=== PATIENT | male | born 1930 | race Caucasian/White ===

== ENCOUNTER → 2017-08-20 | Day surgery (SDC) | payer MEDICARE ==
[~2017-08-20] VITALS: Ht 177.8 cm; Wt 72.0 kg
[~2017-08-20] MED LIST: ARTIFICIAL TEARS OPTH OINT 3.5 APPLIC/3.5 GM TUBO ONE; CIPR250T2 PO; DEXAMETHASONE SOD PHOS 4 MG/ML VIAL IV ONE; FINA5TAB2; GLYCOPYRROLATE 1 MG/5 ML SYRINGE IV PUSH ONE; GLYCOPYRROLATE 1 MG/5 ML VIAL IV PUSH ONE; LABETALOL HCL 100 MG/20 ML VIAL IV ONE; LACTATED RINGER'S 1000 ML INJ 1,000 ML ONE; LEVA250T14 PO; LIDOCAINE 1%/EPINEPHrine 1:100,000 SOLN 50 ML VIAL ONE; METR-1 PO; MULTTAB67 PO; NEOSTIGMINE 5 MG/5 ML SYRINGE IV PUSH ONE; NITR100C4 PO; OMEP20TA93 PO; ONDANSETRON HCL 4 MG/2 ML VIAL IV PUSH ONE; OXYC1TAB63 PO; PROPOFOL 200 MG/20 ML AMP IV ONE; ROCURONIUM INJ 50 MG/5 ML SYRINGE IV PUSH ONE; SIMV10TA PO; SUCR1TAB PO; TERA1CAP3 PO; URSO300C2 PO; VITA1000 PO; ceFAZolin 2 GM PREMIX 50 ML IV SCH; ePHEDrine/NS 25 MG/5 ML SYRINGE IV ONE
[2017-08-20 09:30] VITALS: PULSE 67
--- NOTE | 2017-08-20 09:38 | PD.OP ---
Operative Report Basal cell carcinoma Tip of nose Postoperative Diagnosis: Basal cell carcinoma Tip of nose Procedure: Excision Basal cell carcinoma 2 cm diameter, Frozen section and full thickness skin graft from Left side neck Anesthesia: General Surgeon: Atilio Shah Mental Tester(s): RN Resident Surgeon: none Operation and Findings: Patient was given general anesthesia in supine position, prep and drape was done Time out was completed Tip of nose area markings was done - taking 5 to6 mm margin on all sides, final defect 2 cm in diameter Local anesthetic was infiltrated Specimen was excised down to the cartilage from periphery and taking a small portion of the cartilage in the area immediately below the center of the tumor. Suture marked superior, sent for frozen section. Hemostasis was completed Oversized graft harvested full thickness from left side neck close to the hairline to get thicker skin. Graft was defatted and applied to the nose defect stating in the center - the lateral aspects were de-epithelized and turned in for additional thickness in desired areas. Sutures 4/0 Chromic. Also, 3/0 Vicryl through bolster sutures using Xeroform and eyepad dressing. Excess graft was kept on saline moist gauze. Donor site was closed with 3/0 Vicryl. Steristrip applied. Frozen section reported was BCC with clear margins Patient remained stable, no complications, blood loss less than 5 cc. Atilio Shah MD Aug 20, 2017 09:38
[2017-08-20 10:30] VITALS: TEMP 97.7
[2017-08-20 11:43] VITALS: BP 120/70; PULSE 58; RESP 16; O2SAT 95
== END | disposition home or self-care (01) ==
LOC: PHSDC 06:29
PROVIDERS: ATTEND Plastic Surgery
DX: C44.311 Basal cell carcinoma of skin of nose (principal)
CPT/HCPCS: 00300; 11642; 15260; 88305; 88331; J0690; J1100; J2405; J2710; J3010; J7120

== ENCOUNTER 2018-02-27 13:32 | Inpatient (IN) ==
[2018-02-27] MEDS ORDERED: Morphine Sulfate 15 MG SR Tablet PO ONE (14:00)
--- NOTE | 2018-02-27 14:28 | XR ---
EXAM DATE: 02/27/2018 2:22 PM EDT AGE/SEX: 87 years / Male INDICATIONS: Chest discomfort. CLINICAL DATA: This is the patient's initial encounter. Patient reports that signs and symptoms have been present for 1 day and indicates a pain score of 0/10. MEDICAL/SURGICAL HISTORY: None. None. COMPARISON: No prior exams available for comparison. FINDINGS: The cardiac silhouette is borderline. There is mild bibasilar parenchymal opacity. Mediastinal contou rs and pulmonary vascularity are grossly satisfactory. CONCLUSION: Mild bibasilar parenchymal opacities. Electronically signed by: Yuval Haider MD 02/27/2018 2:26 PM EDT
--- NOTE | 2018-02-27 14:49 | ED ---
HPI General Chief complaint: Medical Clearance Stated complaint: Dr jermaine/ Medical Complaint Time Seen by Provider: 02/27/18 14:00 Source: family and old records reviewed Mode of arrival: ambulatory Limitations: no limitations History of Present Illness HPI narrative: 87-year-old male arrives from the cardiology office. The patient has a heart rate in the 30s with a third-degree block. Patient has no symptoms. The EKG was observed to be abnormal based on a routine primary care appointment yesterday. Glazing Department Supervisor, Dr Decker, intends to place a pacing device tomorrow morning. Patient has a history of functional decline over the last 6 months or so he requires assistance with food/eating, bathing and dressing. No reported loss of consciousness, dyspnea, chest pain, diaphoresis or vomiting. History is provided by medical records and by the son Onset (ago): day(s) Location: chest Radiation: non-radiation Severity: moderate Related Data Allergies Allergy/AdvReac Type Severity Reaction Status Date / Time Sulfa (Sulfonamide Allergy Severe SWELLING Verified 02/27/18 14:24 Antibiotics) Review of Systems ROS Unobtainable ROS Unobtainable: unobtainable due to mental condition and unobtainable due to mental status PMFSH Medical History Medical History Bladder cancer (Acute) Chronic back pain (Acute) FH: cholecystectomy (Acute) History of chemotherapy (Acute) Surgical History Surgical History History of back surgery (Acute) Social History Social History Substance History: No History of Abuse Second Hand Smoke Exposure: No Smoking Status: Never smoker How Often Do You Have a Drink Containing Alcohol: Never Recent Travel in [place] within the Last 8 Weeks: No Recent Out of Country Travel within the Last 8 Weeks: No Exam Narrative Exam Narrative: GENERAL: 87-year-old male elderly, somewhat frail, does not answer questions directly, history provided by 7 SKIN: Focused skin assessment warm/dry. HEAD: Atraumatic. Normocephalic. EYES: Pupils equal and round. No scleral icterus. No injection or drainage. ENT: No nasal bleeding or discharge. Mucous membranes pink and moist. NECK: Trachea midline. No JVD. CARDIOVASCULAR: Heart rate is in the 30s. It is regular. RESPIRATORY: No accessory muscle use. Clear to auscultation. Breath sounds equal bilaterally. GASTROINTESTINAL: Abdomen soft, non-tender, nondistended. Hepatic and splenic margins not palpable. MUSCULOSKELETAL: No obvious deformities. No clubbing. No cyanosis. No edema. NEUROLOGICAL: The patient can stand with assistance. There is no focal deficit. Patient is awake and alert however does not converse with examiner. PSYCHIATRIC: Reasonably cooperative. Appropriate attire. Course Reevaluation(s) Reevaluation #1: Case discussed with Dr. Decker of cardiology. Pacer pads were placed on the patient and the monitor is at the bedside Time: 14:36 Initial Documented Vital Signs Temperature 97.8 F 02/27/18 13:40 Pulse Rate 35 L 02/27/18 13:40 Respiratory Rate 16 02/27/18 13:40 Blood Pressure 156/59 H 02/27/18 13:40 Pulse Oximetry 100 02/27/18 13:40 Last Documented Vital Signs Temperature 97.8 F 02/27/18 13:40 Pulse Rate 32 L 02/27/18 14:00 Respiratory Rate 18 02/27/18 14:00 Blood Pressure 164/74 H 02/27/18 14:00 Pulse Oximetry 98 02/27/18 14:00 Medical Decision Making MDM Narrative Medical decision making narrative: Patient will be admitted to the stepdown unit with the pacer pads connected at bedside. Case discussed with Dr. Muro. Discussed with Dr. Decker. Echocardiogram added on per Dr. Decker's recommendation. Patient remained asymptomatic and with normal BP throughout his ED stay. Medical Screen Exam Complete: Yes Emergency Medical Condition: Yes Lab Data Lab results reviewed: Yes I reviewed the patient's lab results. Result diagrams: 02/27/18 14:16 02/27/18 14:16 Lab Results 02/27/18 02/27/18 02/27/18 Range/Units 14:16 14:16 14:16 WBC 5.8 (4.0-11.0) th/mm3 RBC 4.53 (4.50-5.90) mil/mm3 Hgb 13.4 (13.0-17.0) gm/dL Hct 41.8 (39.0-51.0) % MCV 92.2 (80.0-100.0) fL MCH 29.4 (27.0-34.0) pg MCHC 31.9 L (32.0-36.0) % RDW 17.1 (11.6-17.2) % Plt Count 209 (150-450) th/mm3 MPV 9.6 (7.0-11.0) fL Neut % (Auto) 60.4 (16.0-70.0) % Lymph % (Auto) 26.3 (9.0-44.0) % Dare % (Auto) 8.8 H (0.0-8.0) % Eos % (Auto) 3.5 (0.0-4.0) % Baso % (Auto) 1.0 (0.0-2.0) % Neut # (Auto) 3.5 (1.8-7.7) th/mm3 Lymph # (Auto) 1.5 (1.0-4.8) th/mm3 Dare # (Auto) 0.5 (0.0-0.9) th/mm3 Eos # (Auto) 0.2 (0.0-0.4) th/mm3 Baso # (Auto) 0.1 (0.0-0.2) th/mm3 WBC Differential . Differential Comment Auto diff final PT 10.7 (9.8-11.6) sec INR 1.1 Ratio APTT 26.1 (24.3-30.1) sec Sodium 146 H (136-145) meq/L Potassium 3.9 (3.5-5.1) meq/L Chloride 111 H (98-107) meq/L Carbon Dioxide 29.5 (21.0-32.0) meq/L Anion Gap 6 (5-15) meq/L BUN 29 H (7-18) mg/dL Creatinine 1.18 (0.60-1.30) mg/dL Estimated GFR 58 L (>89) mL/min Random Glucose 79 (74-106) mg/dL Calcium 8.2 L (8.5-10.1) mg/dL Imaging Data Radiologist's impression: Chest X-Ray 02/27/18 14:00 CONCLUSION: Mild bibasilar parenchymal opacities. ECG Data EKG Prior to Arrival: Yes Attestation: I personally reviewed and interpreted this ECG as follows: Interpretation: EKG shows bradycardia at a rate of 30-40 but appears to be a complete heart block nonspecific ST changes multiple leads Discharge Plan Discharge Disposition Patient Disposition: 30 Still Patient Physicians Team ED Provider: George Garnica Primary Care Provider: Vic Resendiz Attending Provider: Rayo Muro Discharge Interventions Interventions: Vital Signs Last Done: 02/27/18 13:40 Status ED Status: Admitted Patient
[2018-02-27 15:13] LABS: Baso # (Auto) 0.1 th/mm3 (0.0-0.2); Eos # (Auto) 0.2 th/mm3 (0.0-0.4); Eos % (Auto) 3.5 % (0.0-4.0); Hematocrit 41.8 % (39.0-51.0); Hemoglobin 13.4 gm/dL (13.0-17.0); Lymph # (Auto) 1.5 th/mm3 (1.0-4.8); Lymph % (Auto) 26.3 % (9.0-44.0); Mean Corpuscular HGB Conc 31.9 % (32.0-36.0); Mean Corpuscular Hemoglobin 29.4 pg (27.0-34.0); Mean Corpuscular Volume 92.2 fL (80.0-100.0); Mean Platelet Volume 9.6 fL (7.0-11.0); Mono # (Auto) 0.5 th/mm3 (0.0-0.9); Mono % (Auto) 8.8 % (0.0-8.0); Neut # (Auto) 3.5 th/mm3 (1.8-7.7); Neut % (Auto) 60.4 % (16.0-70.0); Platelet Count 209 th/mm3 (150-450); Red Blood Count 4.53 mil/mm3 (4.50-5.90); Red Cell Distribution Width 17.1 % (11.6-17.2); White Blood Count 5.8 th/mm3 (4.0-11.0)
[2018-02-27 15:40] LABS: Activated Partial Thrombo Time 26.1 sec (24.3-30.1); INR 1.1 Ratio; Prothrombin Time 10.7 sec (9.8-11.6)
[2018-02-27 15:46] LABS: Calcium 8.2 mg/dL (8.5-10.1); Carbon Dioxide 29.5 meq/L (21.0-32.0); Potassium 3.9 meq/L (3.5-5.1)
[2018-02-27] MEDS ORDERED: Acetaminophen 325 MG Tablet PO PRN (16:14)
--- NOTE | 2018-02-27 16:37 | P.HPIM ---
History of Present Illness Primary Care Physician: Vic Resendiz MD Chief Complaint: complete heart block History of Present Illness: Patient is a pleasant 87-year-old male with dementia sent to [place] for complete heart block. Patient was seeing his primary care physician today, Dr. Vic Resendiz. Routine office EKG noted complete heart block. Patient was then sent by Dr. Resendiz to his professor of physics Dr. Decker. EKG at Dr. Decker's office did confirm complete heart block. Case was discussed between Dr. Decker and Mr. Simental's son. Dr. Decker did explain that hospice care would be appropriate, but Son apparently requested permanent pacemaker placement. Patient is interviewed and examined in his ER room alone. Son is not present. Patient is unable to give any meaningful history. Patient will be admitted to [facility] for permanent pacemaker. PMH: Bladder cancer, cervical spondylosis, chronic constipation, diverticulosis , duodenal ulcer, dysphasia, GERD, hemorrhoids, hyperlipidemia, hypertonic bladder, Lumbar stenosis PSH: Cholecystectomy, colonoscopy, cystoscopy, EGD, ERCP, TURP FHX: Non-contributory SHX: lives with family, no tobacco, no alcohol, no illicit drugs. All: Sulfa - Diagnosis (1) Heart block AV complete Inpatient Certification: I certify that the inpatient services were ordered in accordance with Medicare regulations governing the order. This includes certification that hospital inpatient services are reasonable and necessary and in the case of services not specified as inpatient-only under 42 CFR 419.22(n), that they are appropriately provided as inpatient services in accordance to with the 2-midnight benchmark under 43 CFR 412.3(e) Estimated Total Length of Stay (Days): 3 Plans for Post Hospital Care: Not yet determined Review of Systems All other systems reviewed negative except as stated in HPI PMFSH - History History Provided By: Patient, Family Member - Medical History Medical History: Medical History (Last Reviewed 02/28/18 @ 08:43 by Jerry Segura) Bladder cancer Chronic back pain FH: cholecystectomy History of chemotherapy - Surgical History Surgical History: Surgical History (Last Reviewed 02/28/18 @ 08:43 by Jerry Segura) History of back surgery - Tobacco History Second Hand Smoke Exposure: No Tobacco Use In Past 30 Days: No Smoking Status: Never smoker - Alcohol History How Often Do You Have a Drink Containing Alcohol: Never - Substance Use History Substance History: No History of Abuse - Travel History Recent Travel in the [place] Within the Last 8 Weeks: No Recent Travel Out of the Country Within the Last 8 Weeks: No - Immunization History Tetanus Immunization: Unsure Hx Influenza Vaccine This Season: Yes Medications and Allergies Active Medications: Active Medications Acetaminophen (Tylenol) 650 mg PO Q4H PRN PRN Reason: Temp > 100.4 Al Hydroxide/Mg Hydroxide (Milk Of Magnraffy Liq) 30 ml PO Q12H PRN PRN Reason: Mild Constipation Ondansetron HCl (Zofran Inj) 4 mg IV.PUSH Q6H PRN PRN Reason: NAUSEA OR VOMITING Senna/Docusate Sodium (Nicolasa-Colace) 1 tab PO BID MARLENI Sodium Chloride (Ns Flush) 2 ml IV.FLUSH UNSCH PRN PRN Reason: FLUSH AFTER USING IV ACCESS Allergies Allergy/AdvReac Type Severity Reaction Status Date / Time Sulfa (Sulfonamide Allergy Severe SWELLING Verified 02/27/18 14:24 Antibiotics) Home Medications Medication Instructions Recorded Confirmed Type No Known Home Medications 02/27/18 02/27/18 History Exam Vital signs: Vital Signs 02/27/18 13:40 02/27/18 14:00 Temperature 97.8 F Pulse Rate 35 L 32 L Respiratory Rate 16 18 Blood Pressure 156/59 H 164/74 H Pulse Oximetry 100 98 Narrative: GENERAL: This is a well-nourished, well-developed patient, in no apparent distress. CARDIOVASCULAR: Regular rate and rhythm without murmurs, gallops, or rubs. RESPIRATORY: Clear to auscultation. Breath sounds equal bilaterally. No wheezes , rales, or rhonchi. GASTROINTESTINAL: Abdomen soft, non-tender, nondistended. Normal active bowel sounds MUSCULOSKELETAL: Extremities without clubbing, cyanosis, or edema. NEURO: Patient is able to speak only a few words. Patient follows simple commands. Results - Labs CBC & Chem 7: 02/27/18 14:16 02/27/18 14:16 - Imaging Impressions Chest X-Ray 02/27/18 14:00 CONCLUSION: Mild bibasilar parenchymal opacities. Caprini VTE Risk Assessment Caprini VTE Risk Assessment: Moderate/High Risk (score >= 2) Caprini Risk Assessment Model: Point Value = 1 Point Value = 2 Point Value = 3 Point Value = 5 Age 41-60 Minor surgery BMI > 25 kg/m2 Swollen legs Varicose veins or History of unexplained or recurrent spontaneous Oral contraceptives or hormone replacement Sepsis (< 1 month) Serious lung disease, including pneumonia (< 1 month) Abnormal pulmonary function Acute myocardial infarction Congestive heart failure (< 1 month) History of inflammatory bowel disease Medical patient at bed rest Age 61-74 Arthroscopic surgery Major open surgery (> 45 min) Laparoscopic surgery (> 45 min) Malignancy Confined to bed (> 72 hours) Immobilizing plaster cast Central venous access Age >= 75 History of VTE Family history of VTE Factor V Leiden Prothrombin [id number] Lupus anticoagulant Anticardiolipin antibodies Elevated serum homocysteine Heparin-induced thrombocytopenia Other congenital or acquired thrombophilia Stroke (< 1 month) Elective arthroplasty Hip, pelvis, or leg fracture Acute spinal cord injury (< 1 month) Prophylaxis Regimen: Total Risk Factor Score Risk Level Prophylaxis Regimen 0-1 Low Early ambulation 2 Moderate Order ONE of the following: *Sequential Compression Device (SCD) *Heparin 5000 units SQ BID 3-4 Higher Order ONE of the following medications: *Heparin 5000 units SQ TID *Enoxaparin/Lovenox 40 mg SQ daily (WT < 150 kg, CrCl > 30 mL/min) *Enoxaparin/Lovenox 30 mg SQ daily (WT < 150 kg, CrCl > 10-29 mL/min) *Enoxaparin/Lovenox 30 mg SQ BID (WT < 150 kg, CrCl > 30 mL/min) AND/OR *Sequential Compression Device (SCD) 5 or more Highest Order ONE of the following medications: *Heparin 5000 units SQ TID (Preferred with Epidurals) *Enoxaparin/Lovenox 40 mg SQ daily (WT < 150 kg, CrCl > 30 mL/min) *Enoxaparin/Lovenox 30 mg SQ daily (WT < 150 kg, CrCl > 10-29 mL/min) *Enoxaparin/Lovenox 30 mg SQ BID (WT < 150 kg, CrCl > 30 mL/min) AND *Sequential Compression Device (SCD) Assessment and Plan - Assessment (1) Heart block AV complete Code(s): I44.2 - Atrioventricular block, complete Status: Acute Plan: Patient is a pleasant 87-year-old male with dementia sent to [place] for complete heart block. Patient was seeing his primary care physician today, Dr. Vic Resendiz. Routine office EKG noted complete heart block. Patient was then sent by Dr. Resendiz to his professor of physics Dr. Decker. EKG at Dr. Decker's office did confirm complete heart block. Case was discussed between Dr. Decker and Mr. Simental's son. Dr. Decker did explain that hospice care would be appropriate, but Son requested permanent pacemaker placement. - Case d/w Cardiology, Dr. Sami Decker - obtain stat echocardiogram. Results to Dr. Decker - continue external pacer leads - PPM 02/[address] Decker - SCDs for DVT prophylaxis - supportive care.
--- NOTE | 2018-02-27 17:37 | ECHRPT ---
Indication: hypertensive heart disease CONCLUSIONS The left ventricular systolic function is severely reduced with an estimated ejection fraction of 20 %. Moderately dilated left ventricle. There is global left ventricular dysfunction. The left atrial size is wsgtpokt-ua-ayqgsmsz dilated. The right atrial size is gbaz-bk-nrtbneblst dilated. Mild thickening of the mitral valve leaflets. Dhoqgmpu-ym-zovdpy mitral valve regurgitation. Aortic valve sclerosis is present. Mild aortic valve regurgitation. There is mild tricuspid valve regurgitation. The estimated pulmonary arterial pressure is 60 mmHg. BP: / HR: Rhythm: Other MEASUREMENTS (Male / Female) Normal Values Technical Quality:Good 2D ECHO LV Diastolic Diameter PLAX 6.5 cm 4.2 - 5.9 / 3.9 - 5.3 cm LV Systolic Diameter PLAX 6.2 cm IVS Diastolic Thickness 1.2 cm 0.6 - 1.0 / 0.6 - 0.9 cm LVPW Diastolic Thickness 1.2 cm 0.6 - 1.0 / 0.6 - 0.9 cm LV Relative Wall Thickness 0.4 RV Internal Dim ED PLAX 3.1 cm LVOT Diameter 2.1 cm LA Systolic Diameter LX 5.0 cm 3.0 - 4.0 / 2.7 - 3.8 cm LV Ejection Fraction MOD 4C 14.4 % LV Ejection Fraction 4C AL 13.1 % M-MODE Aortic Root Diameter MM 2.4 cm LA Systolic Diameter MM 4.9 cm LA Ao Ratio MM 2.0 AV Cusp Separation MM 2.2 cm DOPPLER AV Peak Velocity 118.5 cm/s AV Peak Gradient 5.6 mmHg AI Peak Velocity 168.0 cm/s AI Peak Gradient 11.3 mmHg AI Pressure Half Time 596.0 ms LVOT Peak Velocity 60.2 cm/s LVOT Peak Gradient 1.4 mmHg AV Area Cont Eq pk 1.8 cm MV Area PHT 4.0 cm Mitral E Point Velocity 79.0 cm/s Mitral A Point Velocity 44.4 cm/s Mitral E to A Ratio 1.8 LV E' Lateral Velocity 4.9 cm/s Mitral E to LV E' Lateral Ratio 16.2 LV E' Septal Velocity 5.8 cm/s Mitral E to LV E' Septal Ratio 13.7 TR Peak Velocity 352.0 cm/s TR Peak Gradient 49.6 mmHg Right Atrial Pressure 10.0 mmHg Pulmonary Artery Systolic Pressu 59.6 mmHg Right Ventricular Systolic Press 59.6 mmHg PV Peak Velocity 46.2 cm/s PV Peak Gradient 0.9 mmHg FINDINGS LEFT VENTRICLE The left ventricular systolic function is severely reduced with an estimated ejection fraction of 20 %. Moderately dilated left ventricle. There is global left ventricular dysfunction. RIGHT VENTRICLE Normal right ventricular size and systolic function. LEFT ATRIUM The left atrial size is xhjfdmrz-fc-qkkncgqm dilated. RIGHT ATRIUM The right atrial size is efwt-dy-nrelnjnyyo dilated. ATRIAL SEPTUM Normal atrial septal thickness without atrial level shunting by limited color doppler interrogation. AORTA The aortic root and proximal ascending aorta are normal in size on limited imaging. MITRAL VALVE Mild thickening of the mitral valve leaflets. Wspjarck-aq-wpbrwe mitral valve regurgitation. AORTIC VALVE Trileaflet aortic valve. Aortic valve sclerosis is present. Mild aortic valve regurgitation. TRICUSPID VALVE Structurally normal tricuspid valve. There is mild tricuspid valve regurgitation. The estimated pulmonary arterial pressure is 59.6 mmHg. PULMONARY VALVE Trivial pulmonary valve regurgitation. VESSELS The inferior vena cava is normal in size. PERICARDIUM No pericardial effusion. Carolina Bruner MD, FACC (Electronically Signed) Final Date:27 February 2018 17:36
[2018-02-27] MEDS ORDERED: Chlorhexidine Gluconate 2% 1 Pack (2 Cloths) TOPICAL SCH (18:15)
[2018-02-27] MEDS ORDERED: Mupirocin 2% Nasal Oint Topical Syringe EACH NARE SCH (18:15)
[2018-02-27] MEDS ORDERED: Vancomycin Inj 1,000 MG in Sodium Chlor 0.9% Inj 250 ML IV.SIG SCH (19:00)
[2018-02-28] MEDS: Senna/Docusate Sodium 8.6/50 MG Tablet PO SCH ×2 (00:16→08:54)
[2018-02-28] MEDS ORDERED: Dextrose 5%/NaCl 0.9% Inj 1,000 ML IV.CONT SCH (06:00)
--- NOTE | 2018-02-28 09:17 | P.PNIM ---
Subjective Interval history: Follow up complete heart block Patient offers no new concerns/complaints Patient remains pleasantly demented Physical Exam Vital signs: Vital Signs 02/27/18 13:40 02/27/18 14:00 02/27/18 19:11 Temperature 97.8 F Pulse Rate 35 L 32 L Respiratory Rate 16 18 18 Blood Pressure 156/59 H 164/74 H 180/80 H Pulse Oximetry 100 98 100 02/27/18 20:00 02/27/18 21:30 02/27/18 22:00 Temperature 97.6 F Pulse Rate 50 L 30 L Respiratory Rate 14 Blood Pressure 161/65 H Pulse Oximetry 100 100 02/27/18 23:00 02/28/18 00:00 02/28/18 01:00 Temperature 98.4 F Pulse Rate 29 L 30 L 34 L Respiratory Rate 16 Blood Pressure 158/60 H Pulse Oximetry 100 02/28/18 02:00 02/28/18 03:00 02/28/18 04:00 Temperature 98 F Pulse Rate 50 L 39 L 30 L Respiratory Rate 16 Blood Pressure 152/64 H Pulse Oximetry 99 02/28/18 05:00 02/28/18 06:00 02/28/18 07:00 Temperature 97.9 F Pulse Rate 48 L 30 L 32 L Respiratory Rate 17 Blood Pressure 159/60 H Pulse Oximetry 02/28/18 08:00 Temperature Pulse Rate 30 L Respiratory Rate Blood Pressure Pulse Oximetry 97 Intake & Output 02/27/18 02/28/18 02/28/18 18:59 06:59 18:59 Weight 68 kg 76.6 kg Other: # Voids 3 Narrative: GENERAL: This is an elderly 87 year old male able to speak only a few words CARDIOVASCULAR: Bradycardic RESPIRATORY: Clear to auscultation. Breath sounds equal bilaterally. GASTROINTESTINAL: Abdomen soft, non-tender, nondistended. Normal active bowel sounds MUSCULOSKELETAL: Extremities without clubbing, cyanosis, or edema. NEURO: Patient is able to speak only a few words. Patient follows simple commands. Results - Labs CBC & Chem 7: 02/27/18 14:16 02/27/18 14:16 Laboratory Results - last 24 hr 02/27/18 02/27/18 02/27/18 14:16 14:16 14:16 WBC 5.8 RBC 4.53 Hgb 13.4 Hct 41.8 MCV 92.2 MCH 29.4 MCHC 31.9 L RDW 17.1 Plt Count 209 MPV 9.6 Neut % (Auto) 60.4 Lymph % (Auto) 26.3 [place] % (Auto) 8.8 H Eos % (Auto) 3.5 Baso % (Auto) 1.0 Neut # (Auto) 3.5 Lymph # (Auto) 1.5 [place] # (Auto) 0.5 Eos # (Auto) 0.2 Baso # (Auto) 0.1 WBC Differential . Differential Comment Auto diff final PT 10.7 INR 1.1 APTT 26.1 Sodium 146 H Potassium 3.9 Chloride 111 H Carbon Dioxide 29.5 Anion Gap 6 BUN 29 H Creatinine 1.18 Estimated GFR 58 L Random Glucose 79 Calcium 8.2 L - Imaging Impressions Chest X-Ray 02/27/18 14:00 CONCLUSION: Mild bibasilar parenchymal opacities. Assessment and Plan - Assessment (1) Heart block AV complete Code(s): I44.2 - Atrioventricular block, complete Status: Acute Plan: Patient is a pleasant 87-year-old male with dementia sent to [place] for complete heart block. Patient was seeing his primary care physician today, Dr. Vic Resendiz. Routine office EKG noted complete heart block. 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 EKG at Dr. Decker's office did confirm complete heart block. Case was discussed between Dr. Decker and Mr. Simental's son. Dr. Decker did explain that hospice care would be appropriate, but Son requested permanent pacemaker placement. - Dr. Muro discussed the case with Cardiology, Dr. Sami Decker 02/27 - echocardiogram 02/27/18: The left ventricular systolic function is severely reduced with an estimated ejection fraction of 20%. Moderately dilated left ventricle. There is global left ventricular dysfunction. The left atrial size is kppntghz-jx-lfgxdwfl dilated. The right atrial size is ibry-aa-qffslmyakc dilated. Mild thickening of the mitral valve leaflets. Jepsbftj-cs-ozyixw mitral valve regurgitation. Aortic valve sclerosis is present. Mild aortic valve regurgitation. There is mild tricuspid valve regurgitation. The estimated pulmonary arterial pressure is 60 mmHg. - continue external pacer leads - Plan for PPM 02/[address] Decker - Update (02/28): Dr. Decker had a conference call with patient's family today talked further about placement of PPM. It was decided that patient is not a candidate for PPM placement - consult placed to Hospice - SCDs for DVT prophylaxis - supportive care. Plan to DC later today - Attending Attestation Patient examined. Assessment and plan formulated with Dora Moralez PA-C. I agree with the above.
--- NOTE | 2018-02-28 13:01 | ECG ---
Date Performed: 02/27/2018 Time Performed: 14:11:43 PTAGE: 87 years EKG: SINUS BRADYCARDIA COMPLETE HEART BLOCK WITH SLOW JUNCTIONAL ESCAPE RHYTHM. THE COMPLETE HEA RT BLOCK IS NEW FROM THE PRIOR TRACING. ABNORMAL ECG PREVIOUS TRACING : 12/23/2007 23.04 DOCTOR: Martin Pearce Interpretating Date/Time 02/28/2018 12:59:18
--- NOTE | 2018-02-28 13:58 | P.DS ---
<Dora Moralez W - Last Filed: 02/28/18 13:57> Date of admission: 02/27/18 15:13 Primary care physician: Vic Resendiz MD Attending physician on discharge: Rayo Muro Anticipated date of discharge: 02/28/18 Brief History from admission: Patient is a pleasant 87-year-old male with dementia sent to [facility] for complete heart block. Patient was seeing his primary care physician today, Dr. Vic Resendiz. Routine office EKG noted complete heart block. Patient was then sent by Dr. Resendiz to his presentation manager Dr. Decker. EKG at Dr. Decker's office did confirm complete heart block. Case was discussed between Dr. Decker and Mr. Simental's son. Dr. Decker did explain that hospice care would be appropriate, but Son apparently requested permanent pacemaker placement. Patient is interviewed and examined in his ER room alone. Son is not present. Patient is unable to give any meaningful history. Patient will be admitted to [facility] for permanent pacemaker. PMH: Bladder cancer, cervical spondylosis, chronic constipation, diverticulosis , duodenal ulcer, dysphasia, GERD, hemorrhoids, hyperlipidemia, hypertonic bladder, Lumbar stenosis PSH: Cholecystectomy, colonoscopy, cystoscopy, EGD, ERCP, TURP FHX: Non-contributory SHX: lives with family, no tobacco, no alcohol, no illicit drugs. All: Sulfa DS: Diagnosis - Discharge Diagnosis (1) Heart block AV complete Status: Acute DS: Summary Hospital Course: Heart block AV complete Code(s): I44.2 - Atrioventricular block, complete Status: Acute Plan: Patient is a pleasant 87-year-old male with dementia sent to [facility] for complete heart block. Patient was seeing his primary care physician today, Dr. Vic Resendiz. Routine office EKG noted complete heart block. Patient was then sent by Dr. Resendiz to his presentation manager Dr. Decker. EKG at Dr. Decker's office did confirm complete heart block. Case was discussed between Dr. Decker and Mr. Simental's son. Dr. Decker did explain that hospice care would be appropriate, but Son requested permanent pacemaker placement. - Dr. Muro discussed the case with Cardiology, Dr. Sami Decker 02/27 - echocardiogram 02/27/18: The left ventricular systolic function is severely reduced with an estimated ejection fraction of 20%. Moderately dilated left ventricle. There is global left ventricular dysfunction. The left atrial size is dutfumry-vh-vtfoykcb dilated. The right atrial size is dnrs-vh-xslaymlzmo dilated. Mild thickening of the mitral valve leaflets. Auiqduyz-sk-daqfed mitral valve regurgitation. Aortic valve sclerosis is present. Mild aortic valve regurgitation. There is mild tricuspid valve regurgitation. The estimated pulmonary arterial pressure is 60 mmHg. - continue external pacer leads - Plan for PPM 02/[address] Decker - Update (02/28): Dr. Decker had a conference call with patient's family today talked further about placement of PPM. It was decided that patient is not a candidate for PPM placement - offered Hospice consult family do not want a Hospice consult at this time - SCDs for DVT prophylaxis - supportive care. - Time Spent with Patient Total time spent providing and/or coordinating discharge services: Greater than 30 minutes Exam Vital signs: Vital Signs 02/27/18 14:00 02/27/18 19:11 02/27/18 20:00 Temperature Pulse Rate 32 L Respiratory Rate 18 18 Blood Pressure 164/74 H 180/80 H Pulse Oximetry 98 100 100 02/27/18 21:30 02/27/18 22:00 02/27/18 23:00 Temperature 97.6 F 98.4 F Pulse Rate 50 L 30 L 29 L Respiratory Rate 14 16 Blood Pressure 161/65 H 158/60 H Pulse Oximetry 100 100 02/28/18 00:00 02/28/18 01:00 02/28/18 02:00 Temperature Pulse Rate 30 L 34 L 50 L Respiratory Rate Blood Pressure Pulse Oximetry 02/28/18 03:00 02/28/18 04:00 02/28/18 05:00 Temperature 98 F Pulse Rate 39 L 30 L 48 L Respiratory Rate 16 Blood Pressure 152/64 H Pulse Oximetry 99 02/28/18 06:00 02/28/18 07:00 02/28/18 08:00 Temperature 97.9 F Pulse Rate 30 L 32 L 30 L Respiratory Rate 17 Blood Pressure 159/60 H Pulse Oximetry 97 02/28/18 09:00 02/28/18 10:00 02/28/18 11:00 Temperature 97.5 F L Pulse Rate 28 L 30 L 32 L Respiratory Rate 16 Blood Pressure 156/66 H Pulse Oximetry 02/28/18 11:26 02/28/18 12:00 Temperature Pulse Rate 32 L Respiratory Rate Blood Pressure Pulse Oximetry 99 Intake & Output 02/27/18 02/28/18 02/28/18 18:59 06:59 18:59 Weight 68 kg 76.6 kg Other: # Voids 3 Narrative: GENERAL: This is an elderly 87 year old male able to speak only a few words CARDIOVASCULAR: Bradycardic RESPIRATORY: Clear to auscultation. Breath sounds equal bilaterally. GASTROINTESTINAL: Abdomen soft, non-tender, nondistended. Normal active bowel sounds MUSCULOSKELETAL: Extremities without clubbing, cyanosis, or edema. NEURO: Patient is able to speak only a few words. Patient follows simple commands. Results Procedures completed during hospitalization: None Labs on day of discharge: Labs from last 24 hours 02/27/18 02/27/18 02/27/18 14:16 14:16 14:16 WBC 5.8 RBC 4.53 Hgb 13.4 Hct 41.8 MCV 92.2 MCH 29.4 MCHC 31.9 L RDW 17.1 Plt Count 209 MPV 9.6 Neut % (Auto) 60.4 Lymph % (Auto) 26.3 [place] % (Auto) 8.8 H Eos % (Auto) 3.5 Baso % (Auto) 1.0 Neut # (Auto) 3.5 Lymph # (Auto) 1.5 [place] # (Auto) 0.5 Eos # (Auto) 0.2 Baso # (Auto) 0.1 WBC Differential . Differential Comment Auto diff final PT 10.7 INR 1.1 APTT 26.1 Sodium 146 H Potassium 3.9 Chloride 111 H Carbon Dioxide 29.5 Anion Gap 6 BUN 29 H Creatinine 1.18 Estimated GFR 58 L Random Glucose 79 Calcium 8.2 L - Impressions ITS Impressions Chest X-Ray 02/27/18 14:00 CONCLUSION: Mild bibasilar parenchymal opacities. <Rayo Muro - Last Filed: 03/04/18 12:34> Date of admission: 02/27/18 15:13 Primary care physician: Vic Resendiz MD DS: Diagnosis - Discharge Diagnosis (1) Heart block AV complete Status: Acute DS: Summary Hospital Course: Patient examined. Assessment and plan formulated with Dora Moralez PA-C. I agree with the above. - Time Spent with Patient Total time spent providing and/or coordinating discharge services: Results - Impressions ITS Impressions Chest X-Ray 02/27/18 14:00 CONCLUSION: Mild bibasilar parenchymal opacities. Discharge Plan - Discharge Order Discharge Orders: Discharge Order (Routine); Ordered 02/28/18 Ordered By: Dora Moralez - Discharge Details Anticipated Discharge Date: 02/28/18 - Physicians Team Primary Care Provider: Vic Resendiz Attending Provider: Rayo Muro Other Providers: Sami Decker DO
--- NOTE | 2018-02-28 14:13 | P.CONCA ---
History of Present Illness Service: [facility] cardiology Consult date: 02/28/18 Requesting Physician: Rayo Muro Reason for Consult: high grade AV block Primary Care Provider: Vic Resendiz MD Family Provider: Vic Resendiz MD Chief Complaint: complete heart block History of Present Illness: 87-year-old pleasantly demented gentleman initially seen by me in our office yesterday at the request of his PCP, Dr Vic Resendiz whom he saw earlier in the day for a routine annual physical evaluation and was noted to be bradycardic. ECG revealed CHB with ventricular escape rhythm HR 30s. He was sent to our office urgently where I saw him and his son Jose to discuss this finding and the risks, benefits and alternatives of permanent pacemaker implantation, which would be the treatment indicated if invasive procedures were within the goals of care for the patient. Again, the patient does have dementia but did state that he did not wish to have "an operation", so I left his son Jose, who claimed to be MPOA, to have a family discussion via telephone. In the end, Jose concluded that he would like to proceed with PPM placement and was such referred to the ER for admission of this rhythm disturbance and for planned PPM placement today. Overnight, patient had no events. Transcutaneous pacemaker pads were placed to chest wall. I again attempted to discuss the plan for PPM placement with patient today who did not recall who I was, where he was or anything about a pacemaker implantation. He was incontinent of urine and was being cleaned by staff climate scientist at the time. He is severely frail and wheelchair bound. Apparently, he was recently diagnosed with what sounds like an esophageal diverticulum and has been having swallowing and aspiration issues from this. He was seen by GI who offered a surgical intervention and possible PEG tube placement and family declined these invasive management strategies. I reached out again today to the patient's family to express my feelings regarding the overall goals of care and wether or not to pursue PPM implantation as scheduled. Following a very lengthy discussion with patient's sons Santhosh and Jose, both co-MPOAs for patient, they have now declined moving forward with PPM implantation. They are very aware of apparent risks associated with moving forward without PPM placement which would include . At this time, they describe goals of care to be more directed towards keeping the patient comfortable. I am told that the patient is or should be DNR, as they feel strongly about that aspect of his goals of care. Review of Systems patient has dementia and denies 10pt ros. PMFSH - History History Provided By: Patient, Family Member - Medical History Medical History: Medical History (Last Reviewed 02/28/18 @ 08:43 by Jerry Segura) Bladder cancer Chronic back pain FH: cholecystectomy History of chemotherapy - Surgical History Surgical History: Surgical History (Last Reviewed 02/28/18 @ 08:43 by Jerry Segura) History of back surgery - Tobacco History Second Hand Smoke Exposure: No Tobacco Use In Past 30 Days: No Smoking Status: Never smoker - Alcohol History How Often Do You Have a Drink Containing Alcohol: Never - Substance Use History Substance History: No History of Abuse - Travel History Recent Travel in the [place] Within the Last 8 Weeks: No Recent Travel Out of the Country Within the Last 8 Weeks: No - Immunization History Tetanus Immunization: Unsure Hx Influenza Vaccine This Season: Yes Medications and Allergies Active Medications: Active Medications Acetaminophen (Tylenol) 650 mg PO Q4H PRN PRN Reason: Temp > 100.4 Al Hydroxide/Mg Hydroxide (Milk Of Gee Acosta) 30 ml PO Q12H PRN PRN Reason: Mild Constipation Chlorhexidine Gluconate (Chlorhexidine 2% Cloth) 3 pack TOPICAL USED [employer]OV[employer] [facility] Stop: 03/02/18 18:10 Dextrose/Sodium Chloride (D5w/Normal Saline Inj) 1,000 mls @ 75 mls/hr IV.CONT .[id number] [facility] Last Admin: 02/28/18 05:46 Dose: 75 mls/hr Vancomycin HCl 1,000 mg/ (Sodium Chloride) 250 mls @ 250 mls/hr IV.SIG USED [employer] [facility] Stop: 03/02/18 18:11 Mupirocin (Bactroban 2% Nasal Oint) 1 applicatio EACH NARE USED [employer] [facility] Stop: 03/02/18 18:10 Ondansetron HCl (Zofran Inj) 4 mg IV.PUSH Q6H PRN PRN Reason: NAUSEA OR VOMITING Povidone Iodine (Betadine 5% Antisepsis Kit) 1 applicatio EACH NARE USED [employer] [facility] Stop: 03/02/18 18:10 Senna/Docusate Sodium (Nicolasa-Colace) 1 tab PO BID [facility] Last Admin: 02/28/18 08:54 Dose: 1 tab Sodium Chloride (Ns Flush) 2 ml IV.FLUSH UNSCH PRN PRN Reason: FLUSH AFTER USING IV ACCESS Allergies Allergy/AdvReac Type Severity Reaction Status Date / Time Sulfa (Sulfonamide Allergy Severe SWELLING Verified 02/27/18 14:24 Antibiotics) Home Medications Medication Instructions Recorded Confirmed Type No Known Home Medications 02/27/18 02/27/18 History Exam Vital signs: Vital Signs 02/27/18 14:00 02/27/18 19:11 02/27/18 20:00 Temperature Pulse Rate 32 L Respiratory Rate 18 18 Blood Pressure 164/74 H 180/80 H Pulse Oximetry 98 100 100 02/27/18 21:30 02/27/18 22:00 02/27/18 23:00 Temperature 97.6 F 98.4 F Pulse Rate 50 L 30 L 29 L Respiratory Rate 14 16 Blood Pressure 161/65 H 158/60 H Pulse Oximetry 100 100 02/28/18 00:00 02/28/18 01:00 02/28/18 02:00 Temperature Pulse Rate 30 L 34 L 50 L Respiratory Rate Blood Pressure Pulse Oximetry 02/28/18 03:00 02/28/18 04:00 02/28/18 05:00 Temperature 98 F Pulse Rate 39 L 30 L 48 L Respiratory Rate 16 Blood Pressure 152/64 H Pulse Oximetry 99 02/28/18 06:00 02/28/18 07:00 02/28/18 08:00 Temperature 97.9 F Pulse Rate 30 L 32 L 30 L Respiratory Rate 17 Blood Pressure 159/60 H Pulse Oximetry 97 02/28/18 09:00 02/28/18 10:00 02/28/18 11:00 Temperature 97.5 F L Pulse Rate 28 L 30 L 32 L Respiratory Rate 16 Blood Pressure 156/66 H Pulse Oximetry 02/28/18 11:26 02/28/18 12:00 Temperature Pulse Rate 32 L Respiratory Rate Blood Pressure Pulse Oximetry 99 Intake & Output 02/27/18 02/28/18 02/28/18 18:59 06:59 18:59 Weight 68 kg 76.6 kg Other: # Voids 3 Narrative: GENERAL: pleasantly demented with foul smell of urine. NAD SKIN: Warm and dry. HEAD: Atraumatic. Normocephalic. NECK: Trachea midline. No JVD. CARDIOVASCULAR: Regular rate and rhythm. RESPIRATORY: No accessory muscle use. Clear to auscultation. Breath sounds equal bilaterally. GASTROINTESTINAL: Abdomen soft, non-tender, nondistended. MUSCULOSKELETAL: Extremities without clubbing, cyanosis, or edema. No obvious deformities. NEUROLOGICAL: Awake and alert, hard of hearing and has dementia. Moves all extremities Results 02/27/18 14:16 02/27/18 14:16 Coagulation 02/27/18 Range/Units 14:16 PT 10.7 (9.8-11.6) sec APTT 26.1 (24.3-30.1) sec CBC 02/27/18 Range/Units 14:16 WBC 5.8 (4.0-11.0) th/mm3 RBC 4.53 (4.50-5.90) mil/mm3 Hgb 13.4 (13.0-17.0) gm/dL Hct 41.8 (39.0-51.0) % Plt Count 209 (150-450) th/mm3 Neut # (Auto) 3.5 (1.8-7.7) th/mm3 Lymph # (Auto) 1.5 (1.0-4.8) th/mm3 [place] # (Auto) 0.5 (0.0-0.9) th/mm3 Eos # (Auto) 0.2 (0.0-0.4) th/mm3 Baso # (Auto) 0.1 (0.0-0.2) th/mm3 Comprehensive Metabolic Panel 02/27/18 Range/Units 14:16 Sodium 146 H (136-145) meq/L Potassium 3.9 (3.5-5.1) meq/L Chloride 111 H (98-107) meq/L Carbon Dioxide 29.5 (21.0-32.0) meq/L BUN 29 H (7-18) mg/dL Creatinine 1.18 (0.60-1.30) mg/dL Calcium 8.2 L (8.5-10.1) mg/dL Intake and Output 02/27/18 02/28/18 02/28/18 22:59 06:59 14:59 Other: # Voids 3 Weight 76.6 kg Assessment and Plan - Plan Assessment: Complete heart block with ventricular escape rhythm Advanced dementia Frailty with advanced age Recommendation: -The patient appears very comfortable at this time and is hemodynamically stable. Following a lengthy discussion of goals of care for the patient with his family members Santhosh and Jose - who are his MPOAs, at this time they wish to forgo surgical procedures including permanent pacemaker implantation, understanding that the risk of such could be fatal. Patient's overall prognosis is grave in the long and intermediate term, however a timeline with respect to untreated CHB could not be described to the patient's MPOAs as such data does not exist as far as I am aware. Recommend Hospice consultation and d/c when ready.
== END 2018-02-28 15:15 | disposition home or self-care (01) ==
LOC: NEPC 13:32 → NEDA 15:13 → HCIS 20:07
PROVIDERS: ADMIT Hospitalist; ATTEND Hospitalist